=== PATIENT | female | born 1940 | race Caucasian/White ===

== ENCOUNTER 2017-12-24 15:02 | Inpatient (IN) | payer MEDICARE ==
--- NOTE | 2017-12-24 19:25 | ED Physician Chart ---
ED Chief Complaint/HPI - Patient Information Date Seen:: 12/24/17 Time Seen:: 19:16 Chief Complaint:: psychosis History of Present Illness:: THIS IS A 77 YO FEMALE WHO WAS SENT HERE FOR AN EVALUATION OF HER BEING UNCOOPERATIVE, CONFUSED AND DEPRESSED. SHE IS CHRONICALLY ILL WITH PSYCHOSIS Allergies:: Allergies Allergy/AdvReac Type Severity Reaction Status Date / Time furosemide [From Lasix] Allergy Verified 12/24/17 15:20 meperidine [From Demerol] Allergy Verified 12/24/17 15:21 Penicillins Allergy Verified 12/24/17 15:21 Sulfa (Sulfonamide Allergy Verified 12/24/17 15:21 Antibiotics) Vitals:: Vital Signs - 8 hr 12/24/17 15:21 Temp 98.1 F HR 84 RR 16 BP 116/62 O2 Sat % 98 <Wong Tyler - Last Filed: 12/24/17 19:13> - Patient Information Allergies:: Allergies Allergy/AdvReac Type Severity Reaction Status Date / Time furosemide [From Lasix] Allergy Verified 12/24/17 15:20 meperidine [From Demerol] Allergy Verified 12/24/17 15:21 Penicillins Allergy Verified 12/24/17 15:21 Sulfa (Sulfonamide Allergy Verified 12/24/17 15:21 Antibiotics) Vitals:: Vital Signs - 8 hr 12/24/17 15:21 Temp 98.1 F HR 84 RR 16 BP 116/62 O2 Sat % 98 Historian:: Medical Records Review:: Nurse's Note Reviewed, Transfer documents Reviewed <Robert Amin - Last Filed: 12/24/17 21:34> ED Review of Systems - Review of Systems General/Constitutional: No fever, No chills, No weight loss, No weakness, No diaphoresis, No edema, No loss of appetite Skin: No skin lesions, No rash, No bruising Head: No headache, No light-headedness Eyes: No loss of vision, No pain, No diplopia ENT: No earache, No nasal drainage, No sore throat, No tinnitus Neck: No neck pain, No swelling, No thyromegaly, No stiffness, No mass noted Cardio Vascular: No chest pain, No palpitations, No PND, No orthopnea, No edema Pulmonary: No SOB, No cough, No sputum, No wheezing GI: No nausea, No vomiting, No diarrhea, No pain, No melena, No hematochezia, No constipation, No hematemesis G/U: No dysuria, No frequency, No hematuria Musculoskeletal: No bone or joint pain, No back pain, No muscle pain Endocrine: No polyuria, No polydipsia Psychiatric: Prior psych history, Depression, No anxiety, No suicidal ideation, Visual hallucination Hematopoietic: No bruising, No lymphadenopathy Allergic/Immuno: No urticaria, No angioedema Neurological: No syncope, No focal symptoms, No weakness, No paresthesia, No headache, No seizure, No dizziness, No confusion, No vertigo <Robert Amin - Last Filed: 12/24/17 21:34> ED Past Medical History - Past Medical History Obtainable: Yes Past Medical History: CAD (HEART ATTACK), Thyroid disorder, Dementia Family History: None Social History: Non Smoker, No Alcohol, No Drug Use Surgical History: Cholecystectomy, other ( HIP JOINT REPLACEMENT) Psychiatricy History: Depression, Dementia <Robert Amin - Last Filed: 12/24/17 21:34> Family Medical History - Family Member Mother History Unknown: Yes <Wong Tyler - Last Filed: 12/24/17 19:13> ED Physical Exam - Physical Examination General/Constitutional: Awake, Well-developed, well-nourished, Alert, No distress, GCS 15, Non-toxic appearing, Ambulatory Head: Atraumatic Eyes: Lids, conjuctiva normal, PERRL, EOMI Skin: Nl inspection, No rash, No skin lesions, No ecchymosis, Well hydrated, No lymphadenopathy ENMT: External ears, nose nl, Nasal exam nl, Lips, teeth, gums nl Neck: Nontender, Full ROM w/o pain, No JVD, No nuchal rigidity, No bruit, No mass, No stridor Respiratory: Nl effort/Exclusion, Clear to Auscultation, No Wheeze/Rhonchi/Rales Cardio Vascular: RRR, No murmur, gallop, rubs, NL S1 S2 GI: No tenderness/rebounding/guarding, No organomegaly, No hernia, Normal BS's, Nondistended, No mass/bruits, No McBurney tenderness : No CVA tenderness Extremities: No tenderness or effusion, Full ROM, normal strength in all extremities, No edema, Normal digits & nails Neuro/Psych: Alert/oriented, DTR's symmetric, Normal sensory exam, Normal motor strength, Judgement/insight normal (DEPRESSED MOOD AND JUDGEMENT), Mood normal, Normal gait, No focal deficits Misc: Normal back, No paraspinal tenderness <Robert Amin - Last Filed: 12/24/17 21:34> ED Labs/Radiology/EKG Results - Lab Results Results: Laboratory Tests 12/24/17 12/24/17 12/24/17 19:45 19:45 19:45 WBC 5.2 RBC 4.13 Hgb 13.0 Hct 37.8 L MCV 91.7 MCH 31.5 H MCHC Differential 34.3 RDW 11.8 Plt Count 230 MPV 7.9 Neutrophils % 65.1 Lymphocytes % 27.4 Monocytes % 5.6 Eosinophils % 1.6 Basophils % 0.3 PT 10.3 INR 0.99 PTT (Actin FS) 24.1 L Sodium 139 Potassium 4.0 Chloride 104 Carbon Dioxide 27.6 Anion Gap 11.4 BUN 18 Creatinine 0.8 Est GFR ( Amer) TNP Est GFR (Non-Af Amer) TNP BUN/Creatinine Ratio 22.5 Glucose 119 H Calcium 9.5 Total Bilirubin 1.8 H AST 16 ALT 15 Alkaline Phosphatase 85 Troponin I Total Protein 7.1 Albumin 4.2 Globulin 2.9 Albumin/Globulin Ratio 1.5 12/24/17 19:45 WBC RBC Hgb Hct MCV MCH MCHC Differential RDW Plt Count MPV Neutrophils % Lymphocytes % Monocytes % Eosinophils % Basophils % PT INR PTT (Actin FS) Sodium Potassium Chloride Carbon Dioxide Anion Gap BUN Creatinine Est GFR ( Amer) Est GFR (Non-Af Amer) BUN/Creatinine Ratio Glucose Calcium Total Bilirubin AST ALT Alkaline Phosphatase Troponin I < 0.01 L Total Protein Albumin Globulin Albumin/Globulin Ratio - Radiology Results Results: CHEST X-RAY = NAD - EKG Interpretations EKG Time:: 19:25 Rate & Rhythm: 84, sinus Eldred: right axis Intervals: no ectopy seen <Robert Amin - Last Filed: 12/24/17 21:34> ED Assessment - Assessment General Assessment: PSYCHOSIS <Robert Amin - Last Filed: 12/24/17 21:34> ED Septic Shock - <6hrs of presentation: Vital Signs: Vital Signs - 8 hr 12/24/17 15:21 Temp 98.1 F HR 84 RR 16 BP 116/62 O2 Sat % 98 <Wong Tyler - Last Filed: 12/24/17 19:13> - . Is Septic Shock (SBP<90, OR Lactate>4 mmol\L) present?: No - <6hrs of presentation: Vital Signs: Vital Signs - 8 hr 12/24/17 15:21 Temp 98.1 F HR 84 RR 16 BP 116/62 O2 Sat % 98 <Robert Amin - Last Filed: 12/24/17 21:34> ED Reassessment (Disposition) - Reassessment Reassessment Condition:: Unchanged - Diagnosis Diagnosis:: PSYCHOSIS - Patient Disposition Discharge/Transfer:: Acute Care w/in this hosp Admitting Medical Physician:: Ruiz Pollock Condition at Disposition:: Unchanged <Robert Amin - Last Filed: 12/24/17 21:34> ED Discharge Plan <Wong Tyler - Last Filed: 12/24/17 19:13> <Robert Amin - Last Filed: 12/24/17 21:34> - Patient Disposition Admit/Discharge/Transfer: Acute Care w/in this hosp Condition at Disposition: Unchanged
[2017-12-24 20:01] LABS: % BASOPHILS 0.3 % (0.0-2.0); % EOSINOPHILS 1.6 % (0.0-5.0); % LYMPHOCYTES 27.4 % (20.0-50.0); % MONOCYTES 5.6 % (2.0-10.0); % NEUTROPHILS 65.1 % (40.0-80.0); EOSINOPHILE ABSOLUTE 0.1 Th/cmm (0.1-0.4); HEMATOCRIT 37.8 % (41.0-60); LYMPHOCYTE ABSOLUTE 1.4 Th/cmm (1.5-3.0); MEAN CELL VOLUME 91.7 fl (81-100); MEAN CORPUSCULAR HEMOGLOBIN 31.5 pg (27.0-31.0); MEAN CORPUSCULAR HGB CONC 34.3 pg (28.0-36.0); MEAN PLATELET VOLUME 7.9 fl; MONOCYTE ABSOLUTE 0.3 Th/cmm (0.3-1.0); NEUTROPHILE ABSOLUTE 3.4 Th/cmm (1.8-8.0); PLATELET COUNT 230 Th/cmm (150-400); RED BLOOD COUNT 4.13 Mil/cmm (3.80-5.20); RED CELL DISTRIBUTION WIDTH 11.8 % (11.5-20.0); WHITE BLOOD COUNT 5.2 Th/cmm (4.8-10.8)
[2017-12-24 20:12] LABS: INR 0.99 (0.5-1.4); PROTHROMBIN TIME (TEST) 10.3 SECONDS (9.5-11.5)
[2017-12-24 20:16] LABS: ALB/GLOB RATIO 1.5 (1.0-1.8); ALBUMIN 4.2 gm/dL (3.7-5.3); ALKALINE PHOSPHATASE 85 U/L (34-104); ANION GAP 11.4 (7.0-16.0); BILIRUBIN,TOTAL 1.8 mg/dL (0.3-1.0); BUN - UREA NITROGEN 18 mg/dL (7-25); CALCIUM SERUM 9.5 mg/dL (8.6-10.3); CARBON DIOXIDE 27.6 mEq/L (21.0-31.0); CHLORIDE 104 mEq/L (98-107); CREATININE - SERUM 0.8 mg/dL (0.6-1.2); GLUCOSE 119 mg/dL (70-105); SGOT 16 U/L (13-39); SGPT/ALT 15 U/L (7-52); SODIUM SERUM 139 mEq/L (136-145); TOTAL PROTEIN,SERUM 7.1 gm/dL (6.0-8.3)
[2017-12-25 00:16] VITALS: BP 121/67
[2017-12-25] MEDS ORDERED: Magnesium Hydroxide (MOM) 30 mL UDC PO PRN (00:17)
--- NOTE | 2017-12-25 08:57 | Diagnostic Imaging Report ---
Portable chest x-ray HISTORY: Pain The overall heart size appears normal. Atherosclerotic calcification seen in the aorta. No acute focal pulmonary processes. Degenerative changes seen to the spine. IMPRESSION: 1. No acute abnormalities 2. Atherosclerotic vascular changes
[2017-12-25] MEDS ORDERED: NITROFURANTOIN MACROCRYSTAL 100 MG PO SCH (09:00)
[2017-12-25] MEDS ORDERED: Non-Formulary Item 1 EA (L.Acidoph,Paracasei, B.Lactis [Probiotic] 1 EACH) PO SCH (09:00)
[2017-12-25] MEDS ORDERED: THYROID PORK 120 MG PO SCH (09:00)
--- NOTE | 2017-12-25 13:59 | History & Physical ---
ADMIT DATE: 12/24/2017 HISTORY OF PRESENT ILLNESS: The patient is a 77-year-old female with long history of hypothyroidism, degenerative joint disease, mild dementia, admitted to [facility] with acute agitation, worse dementia. The patient denies any chest pain, shortness of breath, nausea, vomiting, fever or chills. The patient was transferred from [facility]. The patient was treated for UTI over there and she is on Macrobid 100 mg twice a day. No fever, no chills, no dysuria or hematuria. PAST MEDICAL HISTORY: Significant for hypothyroidism, degenerative joint disease, dementia. PAST SURGICAL HISTORY: She has history of right hip surgery. ALLERGIES: SHE IS ALLERGIC TO PENICILLIN, SULFA, FUROSEMIDE, MEPERIDINE. SOCIAL HISTORY: No smoking, no alcohol, no drug. FAMILY HISTORY: Noncontributory. REVIEW OF SYSTEMS: RENAL SYSTEM: No history of chronic renal disorder. CARDIOVASCULAR SYSTEM: No coronary artery disease. ENDOCRINE SYSTEM: She has history of hypothyroidism. GASTROINTESTINAL SYSTEM: No upper or lower GI bleed. NEUROLOGICAL SYSTEM: No seizure disorder. SKELETOMUSCULAR SYSTEM: She has degenerative joint disease. HEMATOLOGICAL SYSTEM: No bleeding tendency. GENITOURINARY SYSTEM: She has urinary tract infection. PHYSICAL EXAMINATION: GENERAL: She is awake, alert, oriented. VITAL SIGNS: Temperature 98.2, heart rate 68, blood pressure 107/54. HEENT: Normocephalic. Pupils reactive to light and accommodation. Sclerae clear. NECK: Supple. Negative for lymphadenopathy, JVD or bruit. CHEST: Air entry bilaterally normal. No rales, rhonchi or wheezing. HEART: S1, S2. No murmur. No gallop rhythm. ABDOMEN: Soft, bowel sounds positive. EXTREMITIES: No edema. BACK: Nontender. Skin is intact. BREASTS, PELVIC AND RECTAL: Done by primary physician, no complaint. NEUROLOGICAL: She is awake, alert, oriented. Cranial nerve 1-12 is intact. ASSESSMENT: 1. Urinary tract infection. 2. Hypothyroidism. 3. Degenerative joint disease. 4. Mild dementia. 5. Psychosis. PLAN: The patient admitted to hospital under Dr. Childers's service. Medical problems addressed during hospitalization are dementia, psychosis, urinary tract infection. Medical problems addressed at discharge are hypothyroidism. The patient is medically stable for activity. Thank you Dr. Childers for asking me to see your patient. [facility]# [id number]
[2017-12-26] MEDS: Lactobacillus Rhamnosus GG 15 Billion CFU CAP.SPRINK PO SCH (09:59)
--- NOTE | 2017-12-26 18:14 | Psychosocial Evaluation ---
DATE OF SERVICE: 12/25/2017 Dr. Pak covering for Dr. Phillip Ovalle and Dr. Childers IDENTIFICATION: A 77-year-old female admitted to the hospital due to agitation and psychosis. CHIEF COMPLAINT: "Ever since I came to [place], they keep sending me to the hospital." HISTORY OF PRESENT ILLNESS: This is a 77-year-old female who apparently is from the [facility]. The patient reports that she was part of a group for hip replacement therapy and she states that she was very upset there. She states that she was refusing her antibiotics and she stopped eating. The patient reports that this was going on for multiple days. She reports that she was upset and therefore she stopped cooperating. She is unable to elaborate much more than this. She states that she subsequently was sent to the hospital and she is very upset about this. She reports that she is depressed, that she is angry, that she is not sleeping well, and that she does not have the appetite. She reports that she is now willing to take her antibiotics, but she is very upset about this. The patient otherwise is unable to really provide very much history as she is a poor historian. PAST PSYCHIATRIC HISTORY: The patient reports multiple inpatient hospitalizations. The patient is unable to state if she has been on any psychotropic medications and she denies a history of suicide attempts. As per the charting, the patient is currently on Lexapro. PAST MEDICAL HISTORY: The patient apparently has a history of urinary tract infection. ALLERGIES: PENICILLIN AND SULFA. SOCIAL HISTORY: The patient apparently reports that she has her own place in [place], that she is , and she has 2 adult children who do not live with her. FAMILY HISTORY: The patient denies any family history. CHEMICAL DEPENDENCY HISTORY: The patient denies. SUBSTANCE USE HISTORY: The patient denies any tobacco, alcohol, or illicit substance use. MENTAL STATUS EXAMINATION: The patient is an elderly female with fair hygiene. She is wearing a hospital gown and sitting in a wheelchair. She has intermittent eye contact. Her speech is with an irritable tone and loud and at times pressured and difficult to interrupt. Her mood and affect are quite labile. Her thought process appears to be loose at times. She superficially denies any suicidal or homicidal ideation, but she did stop eating after becoming upset. She, in addition, denies any hallucinations, but she does appear to be somewhat paranoid of this provider. She is alert and oriented to her person. She knows that she is in the hospital. She knows today's date is 12/25/2017. She knows that the current president is Tucker. Her insight, judgment, and impulse control appear to be limited at this time. On memory testing, she is able to state today's date, she is able to state her date of , and she is able to repeat some of the circumstances that led to the hospitalization. On intellectual testing, the patient refuses to engage. ASSESSMENT: This is a 77-year-old female who apparently has a history of depression. Apparently, she also has a history of a UTI. She apparently became very upset. She stopped eating for several days. She also stopped taking her antibiotics. She also appears to be labile and angry. On interview, the patient continues to be labile. She continues to have a lot pressured speech. She continues to be somewhat confused about the situation that led to the hospitalization. She also has very poor insight into her condition and her behaviors. She also states that she will attempt to eat and also take her medications here in the hospital. PROVISIONAL DIAGNOSIS: Unspecified bipolar disorder, rule out major depressive disorder. Rule out secondary to medical condition. PLAN: We will accept the patient in acute hospitalization. We will start the patient back on her home medications of Lexapro. We will encourage the patient to verbalize her needs and participate in group and milieu therapy. We will also encourage the patient to work with the social and political studies professor to work on discharge planning any need for primary resources. We will also consult internal medicine for a complete physical exam prior to any further treatment of her condition. ESTIMATED LENGTH OF STAY: 5 to 7 days. STRENGTHS OF THE PATIENT: The patient appears to have housing and also seems to have community support. WEAKNESSES: The patient has poor insight and poor coping skills. CRITERIA FOR DISCHARGE: That the patient will be less depressed. She will be eating. She will be future oriented. She will be able to perform self care and be able to demonstrate that she can get care for self. JOB# [id number] ALYSSA
--- NOTE | 2017-12-26 21:20 | Internal Medicine Prog Note ---
Internal Medicine Subjective - Subjective Service Date: 12/26/17 Patient seen and examined:: with staff (SHE FEELS BETTER) Patient is:: awake, verbal, in wheelchair, talking Per staff patient has:: no adverse event Internal Medicine Objective - Results Result Diagrams: 12/24/17 19:45 12/24/17 19:45 Recent Labs: Laboratory Last Values WBC 5.2 Th/cmm (4.8-10.8) 12/24/17 19:45 RBC 4.13 Mil/cmm (3.80-5.20) 12/24/17 19:45 Hgb 13.0 gm/dL (12-16) 12/24/17 19:45 Hct 37.8 % (41.0-60) L 12/24/17 19:45 MCV 91.7 fl (81-100) 12/24/17 19:45 MCH 31.5 pg (27.0-31.0) H 12/24/17 19:45 MCHC Differential 34.3 pg (28.0-36.0) 12/24/17 19:45 RDW 11.8 % (11.5-20.0) 12/24/17 19:45 Plt Count 230 Th/cmm (150-400) 12/24/17 19:45 MPV 7.9 fl 12/24/17 19:45 Neutrophils % 65.1 % (40.0-80.0) 12/24/17 19:45 Lymphocytes % 27.4 % (20.0-50.0) 12/24/17 19:45 Monocytes % 5.6 % (2.0-10.0) 12/24/17 19:45 Eosinophils % 1.6 % (0.0-5.0) 12/24/17 19:45 Basophils % 0.3 % (0.0-2.0) 12/24/17 19:45 PT 10.3 SECONDS (9.5-11.5) 12/24/17 19:45 INR 0.99 (0.5-1.4) 12/24/17 19:45 PTT (Actin FS) 24.1 SECONDS (26.0-38.0) L 12/24/17 19:45 Sodium 139 mEq/L (136-145) 12/24/17 19:45 Potassium 4.0 mEq/L (3.5-5.1) 12/24/17 19:45 Chloride 104 mEq/L (98-107) 12/24/17 19:45 Carbon Dioxide 27.6 mEq/L (21.0-31.0) 12/24/17 19:45 Anion Gap 11.4 (7.0-16.0) 12/24/17 19:45 BUN 18 mg/dL (7-25) 12/24/17 19:45 Creatinine 0.8 mg/dL (0.6-1.2) 12/24/17 19:45 Est GFR ( Amer) TNP 12/24/17 19:45 Est GFR (Non-Af Amer) TNP 12/24/17 19:45 BUN/Creatinine Ratio 22.5 12/24/17 19:45 Glucose 119 mg/dL (70-105) H 12/24/17 19:45 Calcium 9.5 mg/dL (8.6-10.3) 12/24/17 19:45 Total Bilirubin 1.8 mg/dL (0.3-1.0) H 12/24/17 19:45 AST 16 U/L (13-39) 12/24/17 19:45 ALT 15 U/L (7-52) 12/24/17 19:45 Alkaline Phosphatase 85 U/L (34-104) 12/24/17 19:45 Troponin I < 0.01 ng/mL (0.01-0.05) L 12/24/17 19:45 Total Protein 7.1 gm/dL (6.0-8.3) 12/24/17 19:45 Albumin 4.2 gm/dL (3.7-5.3) 12/24/17 19:45 Globulin 2.9 gm/dL 12/24/17 19:45 Albumin/Globulin Ratio 1.5 (1.0-1.8) 12/24/17 19:45 TSH 1.68 uIU/ml (0.34-5.60) 12/24/17 19:45 - Physical Exam Vitals and I&O: Vital Signs Temp 97.7 F 12/26/17 20:00 Pulse 100 12/26/17 20:00 Resp 18 12/26/17 20:00 BP 116/76 12/26/17 20:00 Pulse Ox 95 12/26/17 20:00 Intake & Output 12/26/17 12/26/17 12/27/17 06:59 18:59 06:59 Intake Total 1580 Balance 1580 Intake: Oral 1580 Other: # Voids 2 # Bowel Movements 1 Active Medications: Current Medications Acetaminophen (Tylenol) 650 mg PO Q4HR PRN PRN Reason: Pain or Fever >101 Stop: 02/23/18 00:27 Escitalopram Oxalate (Lexapro) 10 mg PO DAILY EBONIE PRN Reason: Protocol Stop: 02/23/18 08:59 Last Admin: 12/26/17 09:59 Dose: Not Given Lactobacillus Rhamnosus (Culturelle 15b) 1 each PO DAILY EBONIE Stop: 02/24/18 08:59 Last Admin: 12/26/17 09:59 Dose: Not Given Lorazepam (Ativan) 0.25 mg PO Q6H PRN; Protocol PRN Reason: Anxiety Stop: 02/23/18 00:27 Magnesium Hydroxide (Milk Of Magnesia) 30 ml PO HS PRN PRN Reason: Constipation Nitrofurantoin Macrocrystals (Macrobid) 100 mg PO BID [facility] Stop: 02/23/18 08:59 Last Admin: 12/26/17 17:00 Dose: 100 mg Thyroid (Wilson Thyroid) 120 mg PO DAILY [facility] Stop: 02/24/18 10:29 Last Admin: 12/26/17 11:53 Dose: 120 mg Zolpidem Tartrate (Ambien) 5 mg PO HS PRN PRN Reason: Insomnia Stop: 02/23/18 00:16 General: alert, demented HEENT: NC/AT, PERRLA, EOMI, anicteric sclerae, throat clear Neck: Supple, No JVD, No thyromegaly, +2 carotid pulse wo bruit, No LAD Lungs: CTAB Cardiovascular: RRR, Normal S1, Normal S2, without murmur Abdomen: non-tender, non-distended Extremities: clear Neurological: no change Internal Medicine Assmt/Plan - Assessment Assessment: 1.UTI. 2.HYPOTHYROIDISM. 3.DJD. 4.DEMENTIA. 5.PSYCHOSIS. - Plan Plan: CONTINUE ON CURRENT MEDICATION AND DIET.
--- NOTE | 2017-12-27 10:18 | Progress Notes ---
DATE: 12/26/[address] Iftikhar Childers and Dr. Phillip Ovalle. SUBJECTIVE: The patient interviewed. Case was discussed with staff and chart reviewed and the patient has been tearful and she has been labile. She has been irritable and uncooperative. The patient is interviewed this morning at bedside. She is at first very irritable with this provider then she begins to cry. She is unsure why she is in the hospital. She reports that she wants to go home to the [facility]. She apparently has episodes of confusion throughout the day and irritability and agitation. MENTAL STATUS EXAMINATION: The patient is an elderly female lying in bed. She has poor eye contact. She is irritable and labile with this provider. Her speech is with irritable tone. Her thought process is concrete at this time. Unable to assess suicidal ideations, homicidal ideations due to nonoperation and that she denies any hallucinations or paranoia. She is alert and oriented to person and place. Her insight, judgment and impulse control remain poor at this time. ASSESSMENT: This is a 77-year-old female admitted to the hospital due to confusion, agitation and depression. The patient at this time is beginning to eat a little bit more, but she continues with significant mood lability. She continues with episodic confusion. She has full cooperation here on the unit due to her agitation. PLAN: The plan is that we will continue the patient acute hospitalization. We will continue medications prescribed. We will encourage the patient to verbalize her need and participate in group and milieu therapy. Also, continue to work with a social welfare research worker and welfare case worker for discharge planning and need for resources. JOB# [id number]
[2017-12-27] MEDS: Lactobacillus Rhamnosus GG 15 Billion CFU CAP.SPRINK PO SCH (10:21)
--- NOTE | 2017-12-27 22:03 | Internal Medicine Prog Note ---
Internal Medicine Subjective - Subjective Service Date: 12/27/17 Patient seen and examined:: with staff (she is doing better) Patient is:: awake, verbal, in wheelchair, talking Per staff patient has:: no adverse event Internal Medicine Objective - Results Result Diagrams: 12/24/17 19:45 12/24/17 19:45 Recent Labs: Laboratory Last Values WBC 5.2 Th/cmm (4.8-10.8) 12/24/17 19:45 RBC 4.13 Mil/cmm (3.80-5.20) 12/24/17 19:45 Hgb 13.0 gm/dL (12-16) 12/24/17 19:45 Hct 37.8 % (41.0-60) L 12/24/17 19:45 MCV 91.7 fl (81-100) 12/24/17 19:45 MCH 31.5 pg (27.0-31.0) H 12/24/17 19:45 MCHC Differential 34.3 pg (28.0-36.0) 12/24/17 19:45 RDW 11.8 % (11.5-20.0) 12/24/17 19:45 Plt Count 230 Th/cmm (150-400) 12/24/17 19:45 MPV 7.9 fl 12/24/17 19:45 Neutrophils % 65.1 % (40.0-80.0) 12/24/17 19:45 Lymphocytes % 27.4 % (20.0-50.0) 12/24/17 19:45 Monocytes % 5.6 % (2.0-10.0) 12/24/17 19:45 Eosinophils % 1.6 % (0.0-5.0) 12/24/17 19:45 Basophils % 0.3 % (0.0-2.0) 12/24/17 19:45 PT 10.3 SECONDS (9.5-11.5) 12/24/17 19:45 INR 0.99 (0.5-1.4) 12/24/17 19:45 PTT (Actin FS) 24.1 SECONDS (26.0-38.0) L 12/24/17 19:45 Sodium 139 mEq/L (136-145) 12/24/17 19:45 Potassium 4.0 mEq/L (3.5-5.1) 12/24/17 19:45 Chloride 104 mEq/L (98-107) 12/24/17 19:45 Carbon Dioxide 27.6 mEq/L (21.0-31.0) 12/24/17 19:45 Anion Gap 11.4 (7.0-16.0) 12/24/17 19:45 BUN 18 mg/dL (7-25) 12/24/17 19:45 Creatinine 0.8 mg/dL (0.6-1.2) 12/24/17 19:45 Est GFR ( Amer) TNP 12/24/17 19:45 Est GFR (Non-Af Amer) TNP 12/24/17 19:45 BUN/Creatinine Ratio 22.5 12/24/17 19:45 Glucose 119 mg/dL (70-105) H 12/24/17 19:45 Calcium 9.5 mg/dL (8.6-10.3) 12/24/17 19:45 Total Bilirubin 1.8 mg/dL (0.3-1.0) H 12/24/17 19:45 AST 16 U/L (13-39) 12/24/17 19:45 ALT 15 U/L (7-52) 12/24/17 19:45 Alkaline Phosphatase 85 U/L (34-104) 12/24/17 19:45 Troponin I < 0.01 ng/mL (0.01-0.05) L 12/24/17 19:45 Total Protein 7.1 gm/dL (6.0-8.3) 12/24/17 19:45 Albumin 4.2 gm/dL (3.7-5.3) 12/24/17 19:45 Globulin 2.9 gm/dL 12/24/17 19:45 Albumin/Globulin Ratio 1.5 (1.0-1.8) 12/24/17 19:45 TSH 1.68 uIU/ml (0.34-5.60) 12/24/17 19:45 - Physical Exam Vitals and I&O: Vital Signs Temp 98.4 F 12/27/17 20:46 Pulse 72 12/27/17 20:46 Resp 20 12/27/17 20:46 BP 98/55 12/27/17 20:46 Pulse Ox 94 12/27/17 20:46 Intake & Output 12/27/17 12/27/17 12/28/17 06:59 18:59 06:59 Intake Total 240 Balance 240 Intake: Oral 240 Other: # Voids 2 Active Medications: Current Medications Acetaminophen (Tylenol) 650 mg PO Q4HR PRN PRN Reason: Pain or Fever >101 Stop: 02/23/18 00:27 Escitalopram Oxalate (Lexapro) 10 mg PO DAILY EBONIE PRN Reason: Protocol Stop: 02/23/18 08:59 Last Admin: 12/27/17 10:21 Dose: 10 mg Lactobacillus Rhamnosus (Culturelle 15b) 1 each PO DAILY EBONIE Stop: 02/24/18 08:59 Last Admin: 12/27/17 10:21 Dose: 1 each Lorazepam (Ativan) 0.25 mg PO Q6H PRN; Protocol PRN Reason: Anxiety Stop: 02/23/18 00:27 Magnesium Hydroxide (Milk Of Magnesia) 30 ml PO HS PRN PRN Reason: Constipation Nitrofurantoin Macrocrystals (Macrobid) 100 mg PO BID EBONIE Stop: 02/23/18 08:59 Last Admin: 12/27/17 16:39 Dose: 100 mg Thyroid (Butternut Thyroid) 120 mg PO DAILY@0630 EBONIE Stop: 02/25/18 16:59 Last Admin: 12/27/17 17:41 Dose: Not Given Zolpidem Tartrate (Ambien) 5 mg PO HS PRN PRN Reason: Insomnia Stop: 02/23/18 00:16 General: alert, demented HEENT: NC/AT, PERRLA, EOMI, anicteric sclerae, throat clear Neck: Supple, No JVD, No thyromegaly, +2 carotid pulse wo bruit, No LAD Lungs: CTAB Cardiovascular: RRR, Normal S1, Normal S2, without murmur Abdomen: non-tender, non-distended Extremities: clear Neurological: no change Internal Medicine Assmt/Plan - Assessment Assessment: 1.HYPOTHYROIDISM. 2.DJD. 3.DEMENTIA. 4.PSYCHOSIS. - Plan Plan: CONTINUE ON CURRENT MEDICATION AND DIET.
--- NOTE | 2017-12-28 07:13 | Progress Notes ---
DATE: 12/27/2017 SUBJECTIVE: The patient is currently in the hospital. Well oriented to name, place, situation, year, month. The patient states that she has had a very tumultuous past few months. She recently moved from [place] to [place] to be near her son. She apparently developed cystitis, became delirious, confused and was placed in a psych hospital and now back in a psych hospital. The patient notes that she is not certain if she can live alone at this time because she is so medically unwell. Staff is noting that she has some episodes of confusion, irritability throughout the day, but at this time, she is pretty oriented and conversable, sleeping well, eating well. ASSESSMENT: The patient is oriented, calm, cooperative, frustrated about being in the hospital. PLAN: We are trying to get in touch with son. Continue concerns about the patient's ability to care for her basic needs. We are treating her Graves' disease as well. ROBERT[facility] [place]# [id number]
[2017-12-28] MEDS: Lactobacillus Rhamnosus GG 15 Billion CFU CAP.SPRINK PO SCH (08:39)
--- NOTE | 2017-12-28 22:15 | Internal Medicine Prog Note ---
Internal Medicine Subjective - Subjective Service Date: 12/28/17 Patient seen and examined:: with staff (SHE DENIES PAIN OR SOB) Patient is:: awake, verbal, in wheelchair, talking Per staff patient has:: no adverse event Internal Medicine Objective - Results Result Diagrams: 12/24/17 19:45 12/24/17 19:45 Recent Labs: Laboratory Last Values WBC 5.2 Th/cmm (4.8-10.8) 12/24/17 19:45 RBC 4.13 Mil/cmm (3.80-5.20) 12/24/17 19:45 Hgb 13.0 gm/dL (12-16) 12/24/17 19:45 Hct 37.8 % (41.0-60) L 12/24/17 19:45 MCV 91.7 fl (81-100) 12/24/17 19:45 MCH 31.5 pg (27.0-31.0) H 12/24/17 19:45 MCHC Differential 34.3 pg (28.0-36.0) 12/24/17 19:45 RDW 11.8 % (11.5-20.0) 12/24/17 19:45 Plt Count 230 Th/cmm (150-400) 12/24/17 19:45 MPV 7.9 fl 12/24/17 19:45 Neutrophils % 65.1 % (40.0-80.0) 12/24/17 19:45 Lymphocytes % 27.4 % (20.0-50.0) 12/24/17 19:45 Monocytes % 5.6 % (2.0-10.0) 12/24/17 19:45 Eosinophils % 1.6 % (0.0-5.0) 12/24/17 19:45 Basophils % 0.3 % (0.0-2.0) 12/24/17 19:45 PT 10.3 SECONDS (9.5-11.5) 12/24/17 19:45 INR 0.99 (0.5-1.4) 12/24/17 19:45 PTT (Actin FS) 24.1 SECONDS (26.0-38.0) L 12/24/17 19:45 Sodium 139 mEq/L (136-145) 12/24/17 19:45 Potassium 4.0 mEq/L (3.5-5.1) 12/24/17 19:45 Chloride 104 mEq/L (98-107) 12/24/17 19:45 Carbon Dioxide 27.6 mEq/L (21.0-31.0) 12/24/17 19:45 Anion Gap 11.4 (7.0-16.0) 12/24/17 19:45 BUN 18 mg/dL (7-25) 12/24/17 19:45 Creatinine 0.8 mg/dL (0.6-1.2) 12/24/17 19:45 Est GFR ( Amer) TNP 12/24/17 19:45 Est GFR (Non-Af Amer) TNP 12/24/17 19:45 BUN/Creatinine Ratio 22.5 12/24/17 19:45 Glucose 119 mg/dL (70-105) H 12/24/17 19:45 Calcium 9.5 mg/dL (8.6-10.3) 12/24/17 19:45 Total Bilirubin 1.8 mg/dL (0.3-1.0) H 12/24/17 19:45 AST 16 U/L (13-39) 12/24/17 19:45 ALT 15 U/L (7-52) 12/24/17 19:45 Alkaline Phosphatase 85 U/L (34-104) 12/24/17 19:45 Troponin I < 0.01 ng/mL (0.01-0.05) L 12/24/17 19:45 Total Protein 7.1 gm/dL (6.0-8.3) 12/24/17 19:45 Albumin 4.2 gm/dL (3.7-5.3) 12/24/17 19:45 Globulin 2.9 gm/dL 12/24/17 19:45 Albumin/Globulin Ratio 1.5 (1.0-1.8) 12/24/17 19:45 TSH 1.68 uIU/ml (0.34-5.60) 12/24/17 19:45 - Physical Exam Vitals and I&O: Vital Signs Temp 98 F 12/28/17 20:00 Pulse 74 12/28/17 20:00 Resp 18 12/28/17 20:00 BP 109/78 12/28/17 20:00 Pulse Ox 95 12/28/17 20:00 Intake & Output 12/28/17 12/28/17 12/29/17 06:59 18:59 06:59 Intake Total 240 180 Output Total 2 Balance 240 178 Intake: Oral 240 180 Output: Urine 2 Other: # Voids 2 Active Medications: Current Medications Acetaminophen (Tylenol) 650 mg PO Q4HR PRN PRN Reason: Pain or Fever >101 Stop: 02/23/18 00:27 Escitalopram Oxalate (Lexapro) 10 mg PO DAILY EBONIE PRN Reason: Protocol Stop: 02/23/18 08:59 Last Admin: 12/28/17 08:39 Dose: Not Given Lactobacillus Rhamnosus (Culturelle 15b) 1 each PO DAILY EBONIE Stop: 02/24/18 08:59 Last Admin: 12/28/17 08:39 Dose: 1 each Lorazepam (Ativan) 0.25 mg PO Q6H PRN; Protocol PRN Reason: Anxiety Stop: 02/23/18 00:27 Magnesium Hydroxide (Milk Of Magnesia) 30 ml PO HS PRN PRN Reason: Constipation Nitrofurantoin Macrocrystals (Macrobid) 100 mg PO BID [facility] Stop: 02/23/18 08:59 Last Admin: 12/28/17 18:01 Dose: 100 mg Thyroid ([place] Thyroid) 120 mg PO DAILY@0630 [facility] Stop: 02/25/18 16:59 Last Admin: 12/28/17 06:07 Dose: 120 mg Zolpidem Tartrate (Ambien) 5 mg PO HS PRN PRN Reason: Insomnia Stop: 02/23/18 00:16 General: alert, demented HEENT: NC/AT, PERRLA, EOMI, anicteric sclerae, throat clear Neck: Supple, No JVD, No thyromegaly, +2 carotid pulse wo bruit, No LAD Lungs: CTAB Cardiovascular: RRR, Normal S1, Normal S2, without murmur Abdomen: non-tender, non-distended Extremities: clear Neurological: no change Internal Medicine Assmt/Plan - Assessment Assessment: 1.HYPOTHYROIDISM. 2.DJD. 3.DEMENTIA. 4.PSYCHOSIS. - Plan Plan: CONTINUE ON CURRENT MEDICATION AND DIET.
[2017-12-29] MEDS: Lactobacillus Rhamnosus GG 15 Billion CFU CAP.SPRINK PO SCH (09:04)
--- NOTE | 2017-12-29 12:43 | Progress Notes ---
DATE: 12/28/2017 SUBJECTIVE: The patient is currently in hospital, well oriented, complaining of some pain symptoms. She is happy that she is back on her thyroid medications. She wants to go to her apartment. It is unclear if she is able to care for herself. She as of yet has not gone down to bed. Upon my examination, she states she is mainly wheelchair bound. It is unclear if she can navigate at home without any assistance. She only gets 2 hours of home health. We are trying to get in touch with her son; concern is currently for grave disability. Staff was noting yesterday some periods of forgetfulness. The patient slept fairly well and no behavioral outburst, well oriented over the past 24 hours and not wanting to take all of her medications, concerned about her medications. ASSESSMENT: The patient is improving, but orientation; however, there are overt concerns about her safety. PLAN: We are trying to get in touch with son. We will coordinate care with case management to see if there has been any progress in regards to getting in touch with collateral and son. We will monitor and follow up. JOB# [id number]
--- NOTE | 2017-12-29 21:00 | Internal Medicine Prog Note ---
Internal Medicine Subjective - Subjective Service Date: 12/29/17 Patient seen and examined:: with staff (SHE IS DOING BETTER.SHE IS TAKING MEDICATION REGULARLY.) Patient is:: awake, verbal, in wheelchair, talking Per staff patient has:: no adverse event Internal Medicine Objective - Results Result Diagrams: 12/24/17 19:45 12/24/17 19:45 Recent Labs: Laboratory Last Values WBC 5.2 Th/cmm (4.8-10.8) 12/24/17 19:45 RBC 4.13 Mil/cmm (3.80-5.20) 12/24/17 19:45 Hgb 13.0 gm/dL (12-16) 12/24/17 19:45 Hct 37.8 % (41.0-60) L 12/24/17 19:45 MCV 91.7 fl (81-100) 12/24/17 19:45 MCH 31.5 pg (27.0-31.0) H 12/24/17 19:45 MCHC Differential 34.3 pg (28.0-36.0) 12/24/17 19:45 RDW 11.8 % (11.5-20.0) 12/24/17 19:45 Plt Count 230 Th/cmm (150-400) 12/24/17 19:45 MPV 7.9 fl 12/24/17 19:45 Neutrophils % 65.1 % (40.0-80.0) 12/24/17 19:45 Lymphocytes % 27.4 % (20.0-50.0) 12/24/17 19:45 Monocytes % 5.6 % (2.0-10.0) 12/24/17 19:45 Eosinophils % 1.6 % (0.0-5.0) 12/24/17 19:45 Basophils % 0.3 % (0.0-2.0) 12/24/17 19:45 PT 10.3 SECONDS (9.5-11.5) 12/24/17 19:45 INR 0.99 (0.5-1.4) 12/24/17 19:45 PTT (Actin FS) 24.1 SECONDS (26.0-38.0) L 12/24/17 19:45 Sodium 139 mEq/L (136-145) 12/24/17 19:45 Potassium 4.0 mEq/L (3.5-5.1) 12/24/17 19:45 Chloride 104 mEq/L (98-107) 12/24/17 19:45 Carbon Dioxide 27.6 mEq/L (21.0-31.0) 12/24/17 19:45 Anion Gap 11.4 (7.0-16.0) 12/24/17 19:45 BUN 18 mg/dL (7-25) 12/24/17 19:45 Creatinine 0.8 mg/dL (0.6-1.2) 12/24/17 19:45 Est GFR ( Amer) TNP 12/24/17 19:45 Est GFR (Non-Af Amer) TNP 12/24/17 19:45 BUN/Creatinine Ratio 22.5 12/24/17 19:45 Glucose 119 mg/dL (70-105) H 12/24/17 19:45 Calcium 9.5 mg/dL (8.6-10.3) 12/24/17 19:45 Total Bilirubin 1.8 mg/dL (0.3-1.0) H 12/24/17 19:45 AST 16 U/L (13-39) 12/24/17 19:45 ALT 15 U/L (7-52) 12/24/17 19:45 Alkaline Phosphatase 85 U/L (34-104) 12/24/17 19:45 Troponin I < 0.01 ng/mL (0.01-0.05) L 12/24/17 19:45 Total Protein 7.1 gm/dL (6.0-8.3) 12/24/17 19:45 Albumin 4.2 gm/dL (3.7-5.3) 12/24/17 19:45 Globulin 2.9 gm/dL 12/24/17 19:45 Albumin/Globulin Ratio 1.5 (1.0-1.8) 12/24/17 19:45 TSH 1.68 uIU/ml (0.34-5.60) 12/24/17 19:45 - Physical Exam Vitals and I&O: Vital Signs Temp 98.3 F 12/29/17 14:59 Pulse 72 12/29/17 14:59 Resp 18 12/29/17 14:59 BP 102/55 12/29/17 14:59 Pulse Ox 97 12/29/17 14:59 Intake & Output 12/29/17 12/29/17 12/30/17 06:59 18:59 06:59 Intake Total 180 Output Total 2 Balance 178 Intake: Oral 180 Output: Urine 2 Active Medications: Current Medications Acetaminophen (Tylenol) 650 mg PO Q4HR PRN PRN Reason: Pain or Fever >101 Stop: 02/23/18 00:27 Escitalopram Oxalate (Lexapro) 10 mg PO DAILY EBONIE PRN Reason: Protocol Stop: 02/23/18 08:59 Last Admin: 12/29/17 08:53 Dose: Not Given Lactobacillus Rhamnosus (Culturelle 15b) 1 each PO DAILY [facility] Stop: 02/24/18 08:59 Last Admin: 12/29/17 09:04 Dose: Not Given Lorazepam (Ativan) 0.25 mg PO Q6H PRN; Protocol PRN Reason: Anxiety Stop: 02/23/18 00:27 Magnesium Hydroxide (Milk Of Magnesia) 30 ml PO HS PRN PRN Reason: Constipation Nitrofurantoin Macrocrystals (Macrobid) 100 mg PO BID [facility] Stop: 02/23/18 08:59 Last Admin: 12/29/17 16:50 Dose: Not Given Thyroid ([place] Thyroid) 120 mg PO DAILY@0630 [facility] Stop: 02/25/18 16:59 Last Admin: 12/29/17 06:23 Dose: 120 mg Zolpidem Tartrate (Ambien) 5 mg PO HS PRN PRN Reason: Insomnia Stop: 02/23/18 00:16 General: alert, demented HEENT: NC/AT, PERRLA, EOMI, anicteric sclerae, throat clear Neck: Supple, No JVD, No thyromegaly, +2 carotid pulse wo bruit, No LAD Lungs: CTAB Cardiovascular: RRR, Normal S1, Normal S2, without murmur Abdomen: non-tender, non-distended Extremities: clear Neurological: no change Internal Medicine Assmt/Plan - Assessment Assessment: 1.HYPOTHYROIDISM. 2.DJD. 3.DEMENTIA. 4.PSYCHOSIS. - Plan Plan: CONTINUE ON CURRENT MEDICATION AND DIET.
--- NOTE | 2017-12-30 00:34 | Progress Notes ---
DATE: 12/29/2017 The patient is currently in the hospital, concerns for grave disability and inability to care for basic needs, needing assistance with ADLs, bathroom for example, no behavior outbursts, well oriented, somewhat suspicious of her medications, but no agitation, no escalation of behaviors. We are also trying to get in touch with her son in order to find out if he will be able to assist her with placement, perhaps she can live with him as there are concerns about her living on her own, although she is oriented. ASSESSMENT: The patient linear and engaged, does not want to talk to me this morning, sleeping, otherwise calm and cooperative. I did discuss with staff. We will coordinate care with social work regarding safe discharge plan and good psychiatric followup. JOB# [id number]
[2017-12-30] MEDS: Lactobacillus Rhamnosus GG 15 Billion CFU CAP.SPRINK PO SCH ×2 (10:07→10:13)
[2017-12-30] MEDS ORDERED: Haloperidol Lactate 5 mg/mL 1mL Vial IM ONE (19:05)
--- NOTE | 2017-12-31 02:18 | Progress Notes ---
DATE: 12/30/2017 SUBJECTIVE: The patient in the hospital. Concerns for symptoms of depression, ongoing symptoms at times refusing treatment. Ongoing concerns about her ability to care for her basic needs, we are trying to get in touch with son. kiln worker has been trying to make contact with the son. Per staff, the patient remains depressed, withdrawn, easily irritable. Denying any SI. ASSESSMENT: The patient is cooperative, but irritable, sometimes tearful, frustrated and wants to leave, but it is unclear if she can care for her basic needs. PLAN: I will continue to monitor. We will continue to encourage medication compliance. JOB# [id number]
[2017-12-31] MEDS: Lactobacillus Rhamnosus GG 15 Billion CFU CAP.SPRINK PO SCH (08:48)
--- NOTE | 2017-12-31 19:10 | Progress Notes ---
DATE: 12/31/2017 SUBJECTIVE: The patient in the hospital, ongoing concerns for depression, seems withdrawn, isolative, angry, upset, stating things like "ever since I have been in [place] I pray that I ," still wishing that she would . No active plans at this time, easily irritable, refusing treatment at times, stating she can go home, but there are concerns about her ability to function at home because she is immobile. Medications were noted. ASSESSMENT: The patient is cooperative, but irritable, frustrated and wants to leave. PLAN: We will continue to monitor. We are awaiting to hear back from the son. JOB# [id number]
[2018-01-01] MEDS: Lactobacillus Rhamnosus GG 15 Billion CFU CAP.SPRINK PO SCH ×2 (09:15→09:20)
--- NOTE | 2018-01-01 23:17 | Progress Notes ---
DATE: SUBJECTIVE: The patient was seen and evaluated. The patient's chart reviewed. Today on [id number] evaluation, the patient presents very irritable, agitated, reporting "Are you trying to kill me ____ from the hospital multiple times since I moved to [place] and I am just angry at everybody." MENTAL STATUS EXAMINATION: Irritable, agitated, frustrated. ASSESSMENT AND PLAN: The patient is irritable, agitated, perseverating, ____ to maintain the patient's redirections. We will continue with primary psychiatrist's treatment plan and goals, which include Lexapro at 10 mg a day. JOB# [id number]
[2018-01-02] MEDS: Lactobacillus Rhamnosus GG 15 Billion CFU CAP.SPRINK PO SCH (08:09)
--- NOTE | 2018-01-02 17:00 | Progress Notes ---
DATE: 01/02/2018 The patient seen, chart reviewed, and discussed with staff. The patient continues to be very irritable, paranoid, and depressed. She is convinced that staff is not providing her with her medications and "trying to kill me." Did follow up with staff who confirmed that she has been compliant with her medications. PLAN: The patient continues to be irritable, paranoid, perseverating as well as depressed, so that she will require inpatient care center treatment. We will monitor patient on a daily basis for response to medications, titrate medications as needed. JOB# [id number]
[2018-01-03] MEDS: Lactobacillus Rhamnosus GG 15 Billion CFU CAP.SPRINK PO SCH (08:50)
--- NOTE | 2018-01-03 22:22 | Internal Medicine Prog Note ---
Internal Medicine Subjective - Subjective Service Date: 01/03/18 Patient seen and examined:: without staff Patient is:: awake, verbal, in wheelchair, talking Per staff patient has:: no adverse event Internal Medicine Objective - Results Result Diagrams: 12/24/17 19:45 12/24/17 19:45 Recent Labs: Laboratory Last Values WBC 5.2 Th/cmm (4.8-10.8) 12/24/17 19:45 RBC 4.13 Mil/cmm (3.80-5.20) 12/24/17 19:45 Hgb 13.0 gm/dL (12-16) 12/24/17 19:45 Hct 37.8 % (41.0-60) L 12/24/17 19:45 MCV 91.7 fl (81-100) 12/24/17 19:45 MCH 31.5 pg (27.0-31.0) H 12/24/17 19:45 MCHC Differential 34.3 pg (28.0-36.0) 12/24/17 19:45 RDW 11.8 % (11.5-20.0) 12/24/17 19:45 Plt Count 230 Th/cmm (150-400) 12/24/17 19:45 MPV 7.9 fl 12/24/17 19:45 Neutrophils % 65.1 % (40.0-80.0) 12/24/17 19:45 Lymphocytes % 27.4 % (20.0-50.0) 12/24/17 19:45 Monocytes % 5.6 % (2.0-10.0) 12/24/17 19:45 Eosinophils % 1.6 % (0.0-5.0) 12/24/17 19:45 Basophils % 0.3 % (0.0-2.0) 12/24/17 19:45 PT 10.3 SECONDS (9.5-11.5) 12/24/17 19:45 INR 0.99 (0.5-1.4) 12/24/17 19:45 PTT (Actin FS) 24.1 SECONDS (26.0-38.0) L 12/24/17 19:45 Sodium 139 mEq/L (136-145) 12/24/17 19:45 Potassium 4.0 mEq/L (3.5-5.1) 12/24/17 19:45 Chloride 104 mEq/L (98-107) 12/24/17 19:45 Carbon Dioxide 27.6 mEq/L (21.0-31.0) 12/24/17 19:45 Anion Gap 11.4 (7.0-16.0) 12/24/17 19:45 BUN 18 mg/dL (7-25) 12/24/17 19:45 Creatinine 0.8 mg/dL (0.6-1.2) 12/24/17 19:45 Est GFR ( Amer) TNP 12/24/17 19:45 Est GFR (Non-Af Amer) TNP 12/24/17 19:45 BUN/Creatinine Ratio 22.5 12/24/17 19:45 Glucose 119 mg/dL (70-105) H 12/24/17 19:45 Calcium 9.5 mg/dL (8.6-10.3) 12/24/17 19:45 Total Bilirubin 1.8 mg/dL (0.3-1.0) H 12/24/17 19:45 AST 16 U/L (13-39) 12/24/17 19:45 ALT 15 U/L (7-52) 12/24/17 19:45 Alkaline Phosphatase 85 U/L (34-104) 12/24/17 19:45 Troponin I < 0.01 ng/mL (0.01-0.05) L 12/24/17 19:45 Total Protein 7.1 gm/dL (6.0-8.3) 12/24/17 19:45 Albumin 4.2 gm/dL (3.7-5.3) 12/24/17 19:45 Globulin 2.9 gm/dL 12/24/17 19:45 Albumin/Globulin Ratio 1.5 (1.0-1.8) 12/24/17 19:45 TSH 1.68 uIU/ml (0.34-5.60) 12/24/17 19:45 - Physical Exam Vitals and I&O: Vital Signs Temp 98.2 F 01/03/18 20:00 Pulse 73 01/03/18 20:00 Resp 19 01/03/18 20:00 BP 109/58 01/03/18 20:00 Pulse Ox 95 01/03/18 20:00 Intake & Output 01/03/18 01/03/18 01/04/18 06:59 18:59 06:59 Intake Total 1800 240 Balance 1800 240 Intake: Oral 1800 240 Other: # Voids 4 3 # Bowel Movements 3 Active Medications: Current Medications Acetaminophen (Tylenol) 650 mg PO Q4HR PRN PRN Reason: Pain or Fever >101 Stop: 02/23/18 00:27 Last Admin: 01/01/18 12:28 Dose: 650 mg Escitalopram Oxalate (Lexapro) 10 mg PO DAILY [facility] PRN Reason: Protocol Stop: 02/23/18 08:59 Last Admin: 01/03/18 08:50 Dose: Not Given Lactobacillus Rhamnosus (Culturelle 15b) 1 each PO DAILY [facility] Stop: 02/24/18 08:59 Last Admin: 01/03/18 08:50 Dose: Not Given Lorazepam (Ativan) 0.25 mg PO Q6H PRN; Protocol PRN Reason: Anxiety Stop: 02/23/18 00:27 Magnesium Hydroxide (Milk Of Magnesia) 30 ml PO HS PRN PRN Reason: Constipation Thyroid ([place] Thyroid) 120 mg PO DAILY@0630 [facility] Stop: 02/25/18 16:59 Last Admin: 01/03/18 06:42 Dose: 120 mg Zolpidem Tartrate (Ambien) 5 mg PO HS PRN PRN Reason: Insomnia Stop: 02/23/18 00:16 General: alert, demented HEENT: NC/AT, PERRLA, EOMI, anicteric sclerae, throat clear Neck: Supple, No JVD, No thyromegaly, +2 carotid pulse wo bruit, No LAD Lungs: CTAB Cardiovascular: RRR, Normal S1, Normal S2, without murmur Abdomen: non-tender, non-distended Extremities: clear Neurological: no change Internal Medicine Assmt/Plan - Assessment Assessment: 1.HYPOTHYROIDISM. 2.DJD. 3.DEMENTIA. 4.PSYCHOSIS. - Plan Plan: CONTINUE ON CURRENT MEDICATION AND DIET. Nutritional Asmnt/Malnutr-PDOC - Dietary Evaluation Malnutrition Findings (Please click <Entered> for more info): Nutritional Asmnt/Malnutrition Start: 12/31/17 14: 25 Text: Status: Active Freq: Document 12/31/17 14:25 JUSTIN (Rec: 12/31/17 14:35 JUSTIN [email or web address]) Nutritional Asmnt/Malnutrition Patient General Information Nutritional Screening Low Risk Diagnosis psychosis NOS Pertinent Medical Hx/Surgical Hx hypothyroidism, DJD, dementia Subjective Information Per EMR, PO intake 75-100% Current Diet Order/ Nutrition Support regular Pertinent Medications culturelle, thyroid Pertinent Labs 12/24 glucose 119 Nutritional Hx/Data Height 1.73 m Height (Calculated Centimeters) 172.7 Current Weight (lbs) 68.039 kg Weight (Calculated Kilograms) 68.0 Weight (Calculated Grams) 66180.9 [place] Body Weight 140 Body Mass Index (BMI) 22.8 Weight Status Approriate GI Symptoms GI Symptoms None Last BM 5/5 Difficult in: None Skin Integrity/Comment: dryness Current %PO Good (75-100%) Estimated Nutritional Goals BEE in Kcals: Using Current wt Calories/Kcals/Kg 25-30 Kcals Calculated 8899-1725 Protein: Using Current wt Protein g/k Protein Calculated 68 Fluid: ml 1700-2040ml (1ml/kcal) Nutritional Problem No current Nutrition Prob Problem N/A Malnutrition Alert Protein-Calorie Malnutrition N/A Is there a minimum of two criteria No selected? Query Text:Check all the applicable criteria. A minimum of two criteria are recommended for diagnosis of either severe or non-severe malnutrition. Intervention/Recommendation Comments 1. Continue with regular diet as ordered. 2. Monitor PO intake, wt, labs and skin integrity 3. F/U as low risk in 7 days, 01/07 Expected Outcomes/Goals Expected Outcomes/Goals 1. PO intake to meet at least 75% of nutritional needs. 2. Wt stability, skin to remain intact, labs to approach WNL.
--- NOTE | 2018-01-04 02:27 | Progress Notes ---
DATE: 01/03/2018 SUBJECTIVE: The patient was seen 01/03/2018, remains irritable, somewhat suspicious, does not want medication, he feels that the staff is overmedicating her. No overt paranoia or psychosis noted. Somewhat perseverative, wants to go home, but concerns about her ability to care for her basic needs as well as noted on my previous documentation in no acute distress. Fair orientation noted. Still with some complaints about not being on the right thyroid medication. The correctional counselor/case manager is in touch with son. We are trying to find her a place to go. The patient appearing sad and withdrawn, but denying overt depression. States she is frustrated about being in the hospital. ASSESSMENT: Mostly bedridden, withdrawn, unable to care for her basic needs, but fair orientation. Interactive. We will continue to monitor and follow up. We will continue to encourage ambulation, better med compliance. JOB# [id number]
[2018-01-04] MEDS: Lactobacillus Rhamnosus GG 15 Billion CFU CAP.SPRINK PO SCH (09:03)
--- NOTE | 2018-01-04 18:47 | Progress Notes ---
DATE: 01/03/2018 SUBJECTIVE: The patient is confused, lethargic, afebrile. OBJECTIVE: VITAL SIGNS: Basically stable. HEENT: Normocephalic, atraumatic. Pupils equal, round, react to light and accommodation. CHEST: Symmetrical. LUNGS: Clear to auscultation bilaterally. HEART: Normal sinus rhythm. S1, S2. ABDOMEN: Benign, soft, nontender. EXTREMITIES: No clubbing, cyanosis or edema bilateral . NEUROLOGICAL: Unremarkable. LABORATORY DATA: Reviewed. ASSESSMENT AND PLAN: 1. Altered level of consciousness, on and off. We will observe closely. 2. Failure to thrive, improving. 3. Hypothyroidism: Continue Synthroid and monitor TSH. 4. Degenerative joint disease. 5. Dementia. 6. Agitation, improving. 7. Depression. Observe. Adjust medication. 8. Psychosis: Psychiatrist is in charge of this condition. 9. DVT prophylaxis. JOB# [id number]
--- NOTE | 2018-01-04 22:16 | Progress Notes ---
DATE: 01/04/2018 SUBJECTIVE: The patient remains well oriented, anxious, wants to leave the hospital. We are still having difficulty confirming placement. Apparently, she lives on her own and is verbalizing that she has a general warehouse associate, but we just need to confirm this. glassworker is in touch with, her son did try to confirm safe discharge plan. The patient remains somewhat depressed, withdrawn, very upset. She is here. No SI. ASSESSMENT: The patient is calm, cooperative, minimally interactive with staff and well oriented, irritable and generally unhappy to be here. PLAN: We will continue to monitor. We are currently trying to confirm a safe discharge plan, will in the meantime, continue to monitor and adjust and titrate medications. JOB# [id number]
[2018-01-05] MEDS: Lactobacillus Rhamnosus GG 15 Billion CFU CAP.SPRINK PO SCH (09:23)
--- NOTE | 2018-01-05 18:52 | Progress Notes ---
DATE: 01/04/2018 SUBJECTIVE: The patient did complain of difficulty swallowing today. OBJECTIVE: VITAL SIGNS: Basically are stable. HEENT: Normocephalic and atraumatic. Pupils equal, round, and reactive to light and accommodation. CHEST: Symmetrical. LUNGS: Clear to auscultation bilaterally. CARDIOVASCULAR: Normal sinus rhythm. ABDOMEN: Benign, soft, and nontender. EXTREMITIES: No clubbing, cyanosis, or edema. ____. NEUROLOGIC: Unremarkable. LABORATORY DATA: Reviewed. ASSESSMENT AND PLAN: 1. Dysphagia: ____ precaution be emphasized. We will observe this closely. 2. Hypotension, improving. 3. Altered level of consciousness, ____. 4. Hypothyroidism: Continue supplement. 5. Psychosis: Adjust medication. 6. Anxiety and depression: Supportive care and adjust medication. 7. Urinary tract infection, improving. 8. ____. 9. Insomnia. 10. Deep venous thrombosis prophylaxis. JOB# [id number]
--- NOTE | 2018-01-05 22:20 | Discharge Summary ---
DATE OF DISCHARGE: 01/05/2018 JUSTIFICATION FOR HOSPITALIZATION: The patient was making some comments regarding depression, melancholy, apparently made some suicidal statements. HISTORY OF PRESENT ILLNESS: A 77-year-old female upset to be in the hospital, uncooperative, irritable, severe depression, has been making some vague suicidal comments, concerned about her safety, history of confusion. PAST PSYCHIATRIC HISTORY: Inpatient admissions in the past. PAST MEDICAL HISTORY: UTI. ALLERGIES: PENICILLIN AND SULFA. SOCIAL HISTORY: The patient was living out of [facility], came to [place], regrets it. Son involved. MENTAL STATUS EXAMINATION: Please see full psych eval for details. PROVISIONAL DIAGNOSES: Mood, unspecified; major depression, unspecified. PAST MEDICAL HISTORY: Please see full H and P. HOSPITAL COURSE: After initial assessment, the patient was admitted to the hospital. The patient was fairly well oriented. Some episodes of forgetfulness were noted. Noted to be depressed, withdrawn, denying any SI, believes that she can live alone, but cannot walk, cannot transfer from bed to wheelchair. Son was involved. She was making efforts to try to get her home services. The patient with bouts of confusion in the hospital concerned, concerns for her ability to care for her basic needs, concerns for grave disability, concerns regarding her capacity to make these types of decisions, she seems to think that she can comfortably function independently at home without any help, but cannot walk and cannot get out of the bed. As the hospitalization course progressed, her mood improved. She was denying any overt depression, just mostly frustration. By 01/05/2018 placement was confirmed and she was discharged. CONDITION UPON DISCHARGE: Improved. Fair ADLs, allowing ADLs. No combative behaviors, no agitation, no escalation of behaviors. Sleep "okay." Appetite is fair. Thought processes were grossly engaged, some forgetfulness noted. No SI, no HI, no intent, no plan. No evidence of any psychotic symptoms. Insight and judgment questionable. PROVISIONAL: Major depression, unspecified. Concerns for cognitive decline, rule out dementia. Given her bouts of forgetfulness and confusion, the patient was pretty engaged and linear on my examination, but staff noting poor orientation at times. PROGNOSIS: The patient follows up with outpatient mental health services. Remains compliant with treatment and remains engaged in treatment and physical therapy. Prognosis may improve, otherwise guarded. [facility]# [id number]
--- NOTE | 2018-01-05 23:51 | Discharge Summary ---
DATE OF DISCHARGE: 01/05/2018 FINAL DIAGNOSES: 1. Altered level of consciousness, improving. 2. Hypothyroidism. 3. Dysphagia. 4. Hypotension, improving. 5. Psychosis, stabilizing. 4. Anxiety or depression. 5. Urinary tract infection, improving. 6. Insomnia. HOSPITAL COURSE: The patient is a 77-year-old female admitted due to altered level of consciousness, failure to thrive, hypothyroidism, degenerative joint disease, anxiety, depression, mild psychosis. The patient also complained of dysphagia. She also has urinary tract infection, which was treated. The patient's symptoms improved overall, however, she was complaining of dysphagia even last night. While coming in to see today, the patient was already discharged. DISCHARGE CONDITION: Stable. DISPOSITION: Unclear because I was not asked where to discharge the patient, and despite I was the referring physician for the patient to come here. JOB# [id number]
--- NOTE | 2018-01-06 01:49 | Progress Notes ---
DATE: 01/05/2018 ADDENDUM reports analysis manager Cesia was in touch with the son for the entirety of the patient's admission. He was aware and did consent to discharge planning including a [facility] for rehabilitation and knowing that mom needed rehabilitation. Apparently, also he is trying to arrange in-home services while she is in the rehab facility. JOB# [id number]
== END 2018-01-05 16:35 | DRG 885 ==
LOC: ER 15:02 → GERO2 21:26
PROVIDERS: ADMIT Psychiatry & Neurology Psychiatry; ATTEND Psychiatry & Neurology Psychiatry
DX: F31.5 Bipolar disorder, current episode depressed, severe, with psychotic features (principal); F03.91 Unspecified dementia, unspecified severity, with behavioral disturbance; E03.9 Hypothyroidism, unspecified; M19.90 Unspecified osteoarthritis, unspecified site; I25.10 Atherosclerotic heart disease of native coronary artery without angina pectoris; Z96.643 Presence of artificial hip joint, bilateral; N30.90 Cystitis, unspecified without hematuria; Z53.29 Procedure and treatment not carried out because of patient's decision for other reasons; R62.7 Adult failure to thrive; F41.9 Anxiety disorder, unspecified; R13.10 Dysphagia, unspecified; I95.9 Hypotension, unspecified; G47.00 Insomnia, unspecified; Z88.0 Allergy status to penicillin; Z88.2 Allergy status to sulfonamides; Z88.5 Allergy status to narcotic agent; Z88.8 Allergy status to other drugs, medicaments and biological substances; Z90.49 Acquired absence of other specified parts of digestive tract; Z79.899 Other long term (current) drug therapy; Z99.3 Dependence on wheelchair; Z74.01 Bed confinement status
CPT/HCPCS: 36415-UA; 71045-TC; 80053-TC; 84443-TC; 84484-TC; 85025-TC; 85610-TC; 85730-TC; 93005; Z7610